=== PATIENT | female | born 1990 | race Two or more races ===

== ENCOUNTER 2019-10-15 17:51 | Inpatient (IN) ==
[~2019-10-15 17:51] MED LIST: MARCAINE SPINAL ONE; NS IRRIGATION 1000 ML ONE; PITOCIN ONE; ZOFRAN INJ 4 MG VIAL ONE
[2019-10-15 17:56] VITALS: BMI 30.3
[2019-10-15 18:36] LABS: BILIRUBIN,URINE NEGATIVE (NEGATIVE); BLOOD/HEMOGLOBIN,URINE NEGATIVE (NEGATIVE); GLUCOSE, URINE NEGATIVE (NEGATIVE); KETONES,URINE NEGATIVE (NEGATIVE); LEUKOCYTE ESTERASE ,URINE NEGATIVE (NEGATIVE); NITRITES,URINE NEGATIVE (NEGATIVE); PROTEIN,URINE NEGATIVE (NEGATIVE); UROBILINOGEN,URINE NORMAL (NORMAL)
[2019-10-15 18:38] LABS: APPEARANCE,URINE CLEAR (CLEAR); COLOR,URINE YELLOW (YELLOW)
[2019-10-15] MEDS ORDERED: NS 1000 ML 1,000 ML ONE (18:53)
[2019-10-15] MEDS ORDERED: LR 1000 ML IV 1,000 ML IV ONE (19:05)
[2019-10-15] MEDS ORDERED: DILAUDID INJ ONE (19:06)
[2019-10-15] MEDS ORDERED: XYLOCAINE-MPF 1% ONE (19:06)
[2019-10-15] MEDS ORDERED: D5 1/2 NS 1L W PITOCIN 20 UNITS/L 20 UNITS/1,000 ML BAG IV ONE (19:06)
[2019-10-15] MEDS ORDERED: NS 1000 ML 1,000 ML IV ONE (19:17)
[2019-10-15] MEDS ORDERED: NS 100 ML IV + SPIKE MINIBAG* 100 ML IV ONE (19:20)
[2019-10-15] MEDS ORDERED: ANCEF VIAL 1 GRAM ONE (19:20)
[2019-10-15] MEDS ORDERED: REGLAN INJ 10 MG VIAL IVP PRN (20:30)
[2019-10-15] MEDS ORDERED: BENADRYL INJ 50 MG VIAL IVP PRN (20:30)
[2019-10-15] MEDS ORDERED: ZOFRAN INJ 4 MG VIAL IVP PRN (20:30)
[2019-10-15] MEDS ORDERED: PHENERGAN INJ 25 MG IM PRN (20:30)
[2019-10-15] MEDS ORDERED: ADACEL or BOOSTRIX TDaP VACCINE IM ONE (20:34)
[2019-10-15] MEDS: D5 1/2 NS 1000 ML 1,000 ML IV SCH (21:00)
[2019-10-15] MEDS ORDERED: D5 1/2 NS 1000 ML 1,000 ML with PITOCIN 20 UNITS IV SCH ×2 (21:00)
[2019-10-15 21:07] LABS: BASOPHILS % (AUTO) 0.4 % (0.2-1.0); EOSINOPHILS # (AUTO) 0.1 x10^3/uL (0.0-0.2); HEMATOCRIT 29.4 % (36.0-47.0); HEMOGLOBIN 10.2 g/dL (12.0-16.0); LYMPHOCYTES # (AUTO) 1.1 X10^3/uL (1.3-2.9); LYMPHOCYTES % (AUTO) 19.9 % (21.0-51.0); MEAN CORPUSCULAR HEMOGLOBIN 31.1 pg (27.0-34.0); MEAN CORPUSCULAR HGB CONC 34.7 g/dL (33.0-35.0); MEAN CORPUSCULAR VOLUME 89.7 fL (80.0-100.0); MONOCYTES # (AUTO) 0.3 x10^3/uL (0.3-0.8); MONOCYTES % (AUTO) 5.4 % (0.0-13.0); NEUTROPHILS % (AUTO) 73.3 % (42.0-75.0); PLATELET COUNT 181 X10^3/uL (150.0-450.0); RED BLOOD COUNT 3.27 X10^6/uL (3.5-5.4); WHITE BLOOD COUNT 5.4 X10^3/uL (3.6-10.0)
[2019-10-15 21:21] LABS: BLOOD UREA NITROGEN 8 mg/dL (7-18); CALCIUM 7.5 mg/dL (8.5-10.1); CARBON DIOXIDE 24.9 mmol/L (21-32); CHLORIDE 107 mmol/L (98-107); CREATININE 0.49 mg/dL (0.55-1.02); SODIUM 139 mmol/L (136-145); eGFR NON BLACK RACES > 60 (>60)
[2019-10-16] MEDS: D5 1/2 NS 1000 ML 1,000 ML IV SCH ×4 (03:47→22:07)
[2019-10-16] MEDS: MOTRIN TAB 800 MG PO PRN ×2 (05:22→20:11)
[2019-10-16 06:12] LABS: HEMATOCRIT 28.5 % (36.0-47.0); HEMOGLOBIN 9.8 g/dL (12.0-16.0)
[2019-10-16] MEDS ORDERED: NS 100 ML IV 100 ML with VENOFER 400 MG IV NR ×2 (09:02)
[2019-10-16] MEDS: PRENATAL PLUS PO SCH (09:37)
[2019-10-16] MEDS: MYLICON TAB 80 MG CHEW PO PRN (20:12)
[2019-10-17] MEDS: D5 1/2 NS 1000 ML 1,000 ML IV SCH (05:35)
[2019-10-17] MEDS: MOTRIN TAB 800 MG PO PRN ×2 (05:41→20:00)
[2019-10-17] MEDS: MYLICON TAB 80 MG CHEW PO PRN (05:42)
[2019-10-17] MEDS: PRENATAL PLUS PO SCH (09:01)
[2019-10-17] MEDS ORDERED: PERCOCET TAB 5/325 MG PO PRN (09:21)
[2019-10-18] MEDS: MOTRIN TAB 800 MG PO PRN (06:19)
[2019-10-18] MEDS: PRENATAL PLUS PO SCH (09:32)
[2019-10-18] MEDS ORDERED: ADACEL or BOOSTRIX TDaP VACCINE IM ONE (11:38)
[2019-10-18 16:11] VITALS: BP 96/50
== END 2019-10-18 15:00 | disposition home or self-care (01) | DRG 788 ==
LOC: ER 17:51 → LD 19:45 → MED/SURG 21:36
PROVIDERS: ADMIT Obstetrics & Gynecology Obstetrics; ATTEND Obstetrics & Gynecology Obstetrics
DX: Z23 Encounter for immunization; N85.8 Other specified noninflammatory disorders of uterus; Z37.0 Single live birth; Z3A.38 38 weeks gestation of pregnancy; O34.211 Maternal care for low transverse scar from previous cesarean delivery
CPT/HCPCS: 36415; 80048; 81003; 85014; 85018; 85025; 86592; 86850; 86900; 86901; 90715; 96365; 96374; 99284; A4222; J0690; J1170; J1756; J2405; J2590; J7030; J7050; J7120; S0197; S5010